=== PATIENT | male | born 1935 | race Hispanic/Latino ===

== ENCOUNTER 2017-08-12 21:22 | Emergency (ER) | payer SELFPAY ==
[2017-08-12 21:26] VITALS: BP 114/54; PULSE 79; RESP 16; TEMP 98; O2SAT 99
--- NOTE | 2017-08-12 21:38 | ED PDOC ---
HPI: Psych/Substance Abuse Time Seen by Provider: 08/12/17 21:30 Chief Complaint (Nursing): Alcohol Ingestion Chief Complaint (Provider): intoxication ED Caveat: Intoxicated History/Exam Limitations: intoxication Additional Complaint(s): pt known well to ER for alcohol intoxication brought in to ER for puclib intoxication Past Medical History Reviewed: Historical Data, Nursing Documentation, Vital Signs Vital Signs: Last Vital Signs Temp 98 F 08/12/17 21:23 Pulse 79 08/12/17 21:23 Resp 16 08/12/17 21:23 BP 114/54 L 08/12/17 21:23 Pulse Ox 99 08/12/17 21:23 - Family History Family History: States: Unknown Family Hx - Allergies Allergies/Adverse Reactions: Allergies Allergy/AdvReac Type Severity Reaction Status Date / Time Unobtainable Allergy Verified 11/27/15 20:55 Review of Systems Review Of Systems: ROS cannot be obtained secondary to pt's inabilty to answer questions. Physical Exam - Reviewed Nursing Documentation Reviewed: Yes Vital Signs Reviewed: Yes - Physical Exam Appears: Positive for: In Acute Distress (intoxicated) Head Exam: Positive for: ATRAUMATIC, NORMOCEPHALIC Eye Exam: Positive for: Other (LEFT globe consistent with phthisis bulbi) ENT: Positive for: Other (adentulous) Neck: Positive for: Painless ROM, Supple Cardiovascular/Chest: Positive for: Regular Rate, Rhythm, Chest Non Tender Respiratory: Negative for: Accessory Muscle Use, Respiratory Distress Gastrointestinal/Abdominal: Positive for: Soft. Negative for: Tenderness Extremity: Positive for: Normal ROM. Negative for: Deformity Neurologic/Psych: Positive for: Alert, Mood/Affect (happy, poor train of thought ), Gait (steady and patient dancing in ER), Other (nonsensical speech). Negative for: Motor/Sensory Deficits - ECG O2 Sat by Pulse Oximetry: 99 Disposition - Clinical Impression Clinical Impression: Alcohol abuse with intoxication - Disposition Referrals: Alcoholics Anonymous [Outside] Disposition: Routine/Home Disposition Time: 21:46 Condition: STABLE Instructions: Abuse of Alcohol (ED) Print Language: MOLDOVAN
== END 2017-08-12 21:48 | disposition home or self-care (01) ==
LOC: H.ER 21:22
DX: F10.129 Alcohol abuse with intoxication, unspecified (principal)

== ENCOUNTER 2017-08-13 00:01 | Emergency (ER) | payer SELFPAY ==
[2017-08-13 00:08] VITALS: BMI 22.8
[2017-08-13 00:18] VITALS: BP 143/75; PULSE 77; RESP 16; TEMP 98.7; O2SAT 100
--- NOTE | 2017-08-13 00:29 | ED PDOC ---
HPI: Psych/Substance Abuse Time Seen by Provider: 08/13/17 00:07 Chief Complaint (Nursing): Alcohol Ingestion Chief Complaint (Provider): EtOH abuse ED Caveat: Intoxicated History Per: EMS History/Exam Limitations: intoxication Onset/Duration Of Symptoms: Persistent Additional Complaint(s): 81yo male, brought to the ED by EMS after patient was discovered to be publicly intoxicated. Patient is well known to the facility and was last seen here 3 hours ago and discharged home. Patient without any medical complaints. A full HPI per patient is limited due to his intoxicated state. Past Medical History Reviewed: Historical Data, Nursing Documentation, Vital Signs Vital Signs: Last Vital Signs Temp 98.7 F 08/13/17 00:15 Pulse 77 08/13/17 00:15 Resp 16 08/13/17 00:15 BP 143/75 08/13/17 00:15 Pulse Ox 100 08/13/17 00:15 - Surgical History Surgical History: No Surg Hx - Family History Family History: States: No Known Family Hx, Unknown Family Hx - Allergies Allergies/Adverse Reactions: Allergies Allergy/AdvReac Type Severity Reaction Status Date / Time Unobtainable Allergy Verified 11/27/15 20:55 Review of Systems Review Of Systems: ROS cannot be obtained secondary to pt's inabilty to answer questions. Physical Exam - Physical Exam Head Exam: Positive for: ATRAUMATIC, NORMAL INSPECTION, NORMOCEPHALIC Skin: Positive for: Normal Color Eye Exam: Positive for: Other (patient missing left eye) Neck: Positive for: Supple Cardiovascular/Chest: Positive for: Regular Rate, Rhythm Respiratory: Positive for: Normal Breath Sounds. Negative for: Respiratory Distress Gastrointestinal/Abdominal: Positive for: Soft. Negative for: Tenderness Neurologic/Psych: Positive for: Alert - ECG O2 Sat by Pulse Oximetry: 100 (RA) Pulse Ox Interpretation: Normal - Critical Care Total Time (In Min): 30 Documented Critical Care: Time excludes all time spent performint seperately billable procedures Medical Decision Making Medical Decision Making: Time: 7 Impression: EtOH use Plan: -- Patient placed under 4 point restraints due to risks of fall, self injury and elopement. Patient placed under 1:1 observation. -- Haldol 5mg and Ativan 2mg ordered -- Alcohol serum Time: 0140 Patient resting in room, no acute distress. Time: 0315 patient resting comfortably, no distress Scribe Attestation: Documented by Susan Espinoza acting as a scribe for Singh Burciaga MD. Provider Attestation: All medical record entries made by the Scribe were at my direction and personally dictated by me. I have reviewed the chart and agree that the record accurately reflects my personal performance of the history, physical exam, medical decision making, and the department course for this patient. I have also personally directed, reviewed, and agree with the discharge instructions and disposition. Disposition - Clinical Impression Clinical Impression: Alcohol abuse - Disposition Disposition: Routine/Home Disposition Time: 06:30 Condition: STABLE Instructions: Alcohol Intoxication (ED) Forms: [employer] (Estonian) Print Language: [place]
== END 2017-08-13 06:16 | disposition home or self-care (01) ==
LOC: H.ER 00:01
DX: F10.10 Alcohol abuse, uncomplicated (principal)
CPT/HCPCS: 96372; 99283; G0480; J1630; J2060

== ENCOUNTER 2018-12-13 18:25 | Emergency (ER) | payer SELFPAY ==
[2018-12-13 18:25] VITALS: BMI 22.8
--- NOTE | 2018-12-13 18:48 | ED PDOC ---
HPI: Psych/Substance Abuse Time Seen by Provider: 12/13/18 18:33 Chief Complaint (Nursing): Alcohol Ingestion Chief Complaint (Provider): Alcohol intoxciation ED Caveat: Intoxicated History Per: Other (police) History/Exam Limitations: intoxication Additional Complaint(s): 83yo male, brought to ER by police after he was found walking intoxicated, holding a bottle of liquor, through a little league baseball game. In ER, patient presents with slurred speech, is agitated and has poor insight; patient is uncooperative. Per police, no reports of trauma. HPI and ROS limited due to patient's intoxicated state. Past Medical History Reviewed: Historical Data, Nursing Documentation, Vital Signs - Family History Family History: States: Unknown Family Hx - Allergies Allergies/Adverse Reactions: Allergies Allergy/AdvReac Type Severity Reaction Status Date / Time Unobtainable Allergy Verified 11/27/15 20:55 Review of Systems Review Of Systems: ROS cannot be obtained secondary to pt's inabilty to answer questions. (intoxication) Physical Exam - Reviewed Nursing Documentation Reviewed: Yes Vital Signs Reviewed: Yes - Physical Exam Appears: Positive for: No Acute Distress (+ intoxicated) Head Exam: Positive for: ATRAUMATIC Cardiovascular/Chest: Negative for: Tachycardia Respiratory: Negative for: Respiratory Distress Gastrointestinal/Abdominal: Positive for: Soft. Negative for: Tenderness Neurological/Psych: Positive for: Symmetric/Intact Strength (symmetric stre ngth), Mood/Affect (poor insight), Other (intoxicated patient with slurred speech; euphoric with periods of agitation) Comments: patient noted to be intermittently swinging at staff - Laboratory Results Result Diagrams: 12/13/18 18:55 12/13/18 18:55 - ECG ECG: Positive for: Interpreted By Me ECG Rhythm: Positive for: Sinus Tachycardia. Negative for: ST/T Changes Rate: 108 Medical Decision Making Medical Decision Makinyo male with intoxication, agitation, poor insight -- UDS -- EKG -- Labs -- Serum alcohol level 1834 Patient given Ativan 2mg IM for agitation relief given alcohol delirium Patient also placed on 1-1 observation 1900 patient signed out to Dr. Burciaga pending labs, clinical sobriety Scribe Attestation: Documented by Susan Espinoza, acting as a scribe for Carlos Solis DO Provider Scribe Attestation: All medical record entries made by the Scribe were at my direction and personally dictated by me. I have reviewed the chart and agree that the record accurately reflects my personal performance of the history, physical exam, medical decision making, and the department course for this patient. I have also personally directed, reviewed, and agree with the discharge instructions and disposition. Disposition - Clinical Impression Clinical Impression: Alcohol abuse with uncomplicated intoxication - Patient ED Disposition Is Patient to be Admitted: Transfer of Care Counseled Patient/Family Regarding: Studies Performed, Diagnosis - Disposition Disposition: Transfer of Care Disposition Time: 19:11 Condition: STABLE Instructions: Alcohol Abuse and Alcoholism (DC) Forms: [employer] (Mauritian) Print Language: BAHAMIAN Patient Signed Over To: Singh Burciaga Handoff Comments: pending labs/ re-eval and likely sobriety
[2018-12-13 18:58] LABS: BASO % 0.5 % (0.0-2.0); EOS # 0.1 K/uL (0.0-0.7); EOS % 1.4 % (0.0-4.0); HEMOGLOBIN 11.3 g/dL (12.0-18.0); LYMPH # 1.9 K/uL (1.0-4.3); LYMPH % 25.3 % (20.0-40.0); MEAN CELL VOLUME 91.5 fl (80.0-94.0); MEAN CORPUSCULAR HEMOGLOBIN 30.8 pg (27.0-31.0); MEAN CORPUSCULAR HGB CONC 33.7 g/dL (33.0-37.0); MEAN PLATELET VOLUME 8.8 fl (7.2-11.7); MONO # 0.7 K/uL (0.0-0.8); MONO % 8.7 % (0.0-10.0); NEUT # 4.9 K/uL (1.8-7.0); NEUT % 64.1 % (50.0-75.0); RBC 3.67 Mil/uL (4.40-5.90); RED CELL DISTRIBUTION WIDTH 14.9 % (11.5-14.5); WHITE BLOOD COUNT 7.7 K/uL (4.8-10.8)
[2018-12-13 19:14] LABS: BLOOD UREA NITROGEN 20 mg/dl (9-20); GFR NON-AFRICAN AMERICAN > 60
--- NOTE | 2018-12-13 19:46 | ED PDOC ---
- Laboratory Results Result Diagrams: 12/13/18 18:55 12/13/18 18:55 Medical Decision Making Medical Decision Makin:25 Patient signed out to this provider by Dr. Solis pending labs and clinical sobr iety. 21:00 Patient remains in no acute distress with stable vitals. Labs reviewed and reveal no clinically significant abnormalities. Pending clinical sobriety. Alcohol quant level of 257. 22:30 Upon re-evaluation, patient is resting comfortably in no acute distress with normal vitals. 01:30 Vitals are stable and patient is resting comfortably. 03:12 Patient remains in no distress, with stable vitals and without complaints. 05:55 On re-evaluation, patient is stable, in no distress, with clear speech and steady gait. He requires no further treatment and is stable for discharge. Scribe Attestation: Documented by Kimberlee Soriano, acting as a scribe Axel Burciaga MD Provider Scribe Attestation: All medical record entries made by the Scribe were at my direction and person ally dictated by me. I have reviewed the chart and agree that the record accurately reflects my personal performance of the history, physical exam, medical decision making, and the department course for this patient. I have also personally directed, reviewed, and agree with the discharge instructions and disposition Disposition - Clinical Impression Clinical Impression: Alcohol abuse with uncomplicated intoxication - POA Present On Arrival: None - Disposition Disposition: Routine/Home Disposition Time: 05:55 Condition: STABLE Instructions: Alcohol Abuse and Alcoholism (DC) Forms: [employer] (Hungarian) Print Language: DJIBOUTIAN
[2018-12-14 06:53] VITALS: BP 128/81; RESP 20; TEMP 98.2; O2SAT 99
--- NOTE | 2018-12-14 08:25 | CARD ---
APPROVED REPORT Date of service: 12/13/2018 EKG Measurement Heart [id number] <Conclusion> Sinus tachycardia Otherwise normal ECG
[2018-12-15 12:54] VITALS: PULSE 108
== END 2018-12-14 06:53 | disposition home or self-care (01) ==
LOC: H.ER 18:25
DX: F10.120 Alcohol abuse with intoxication, uncomplicated (principal)
CPT/HCPCS: 80048; 82948; 85025; 93005; 96372; 99282; G0480; J2060